=== PATIENT | female | born 2005 | race Caucasian/White ===

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

== ENCOUNTER 2025-04-16 15:54 | Outpatient (AMB) | payer OTHER, SELFPAY ==
--- NOTE | 2025-04-16 15:57 | A.OFFPC_ITS ---
Vital Signs 04/16/25 16:01 Height 5 ft 0.24 in Weight 191 lb 8 oz BMI 37.1 BP 104/74 Blood Pressure Location Rt brachial Position Sitting Respiration 14 Pulse 91 Pulse Source Pulse Oximeter Pulse Oximetry (%) 96 Oxygen Delivery Method Room Air Intake Visit Reasons: cpe Intake Note: Physical Quarry Worker Required: No Allergies amoxicillin Allergy (Intermediate, Verified 04/16/25 15:59) Hives Tobacco use date assessed: 04/16/25 Dental Screening Dental Screen Date: 04/16/25 Did you have a dental visit in the last 12 months?: Yes Did you have a dental problem in the last 6 months where you did not have access to dental care?: No Was dental information given to patient?: Patient has dentist HPI HPI Comments History of Present Illness Details The patient is a 19-year-old female presenting for follow up BH: Stable off wellbutrin. Follows with therapist. The patient describes chronic painful periods, raising her suspicion of endometriosis or PCOS. She experiences pelvic pain particularly around her uterus and ovaries. In addition to pain, she is concerned about potential endometriosis, given the persistence and severity of dysmenorrhea. A family history of insulin resistance has been noted. She was referred to audio visual design engineer but says she did not hear about scheduling an appt Patient frustrated by inability to lose weight. Eats low calorie diet, has been exercising. ROS see HPI PHYSICAL EXAM: GENERAL: Alert and oriented x 3. NAD EYES: EOMI. Anicteric. HENT: Moist mucous membranes. No scleral icterus. No cervical lymphadenopathy. LUNGS: Clear to auscultation bilaterally. CARDIOVASCULAR: Regular rate and rhythm. No murmur. No JVD. ABDOMEN: Soft, non-tender +bs EXTREMITIES: No edema. Non-tender. SKIN: No rashes or lesions. Warm. NEUROLOGIC: No focal neurological deficits. CN II-XII grossly intact PSYCHIATRIC: Cooperative. 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 1. Little interest or pleasure in doing things: several days 2. Feeling down, depressed, or hopeless: several days 3. Trouble falling or staying asleep, or sleeping too much: nearly every day 4. Feeling tired or having little energy: several days 5. Poor appetite or overeating: nearly every day 6. Feeling bad about yourself - or that you are a failure or have let yourself or your family down: more than half the days 7. Trouble concentrating on things, such as reading the newspaper or watching television: nearly every day 8. Moving or speaking so slowly that other people could have noticed. Or the opposite - being so fidgety or restless that you have been moving around a lot more than usual: more than half the days 9. Thoughts that you would be better off or of hurting yourself in some way: several days Total score: 17 Depression Screening Interpretation: Positive Depression Screening Follow-up: Existing condition and Community Mental Health Worker F/U Depression Screening Done: Yes 46165 - PHQ-9 Billing: Yes Source: Developed by Drs. Jossue Parikh, Connie Weller, Ammon Hernández and colleagues, with an educational george from [employer]. Thrive Questionnaire Date Thrive assessed: 04/09/25 I am a: Patient What is your living situation today?: I have a steady place to live Within the past 12 months, did the food you bought not last and you didn't have the money to get more?: Never true Within the past 12 months, did you worry whether your food would run out before you got money to buy more?: Never true Do you have trouble paying for medicines?: No Do you have trouble getting transportation to medical appointments?: No Do you have trouble paying your heating and electricity bill?: No Do you have trouble taking care of your child, family member or friend?: No Do you have trouble with day-to-day activities such as bathing, preparing meals, shopping, managing finances, etc.?: No Are you currently unemployed and looking for a job?: No Are you interested in more education?: No Please select the resources that you would like help with: None Currently or been in a relationship where the following occur: No concerns reported THRIVE Score: 0 AUDIT C Alcohol Use Questionnaire (AUDIT-C) 1. How often do you have a drink containing alcohol?: Never 3. How often do you have six or more drinks on one occasion?: Never Total Score: 0 JOANNA-7 AMB Questionnaire JOANNA-7 Date JOANNA - 7 assessed: 04/16/25 Feeling nervous, anxious, or on edge: 1 = Several days Not being able to stop or control worryin = Several days Worrying too much about different things: 1 = Several days Being so restless that it is hard to sit still: 1 = Several days Becoming easily annoyed or irritable: 3 = Nearly every day Feeling afraid as if something awful might happen: 2 = More than half the days Source: Developed by Drs. Jossue Parikh, Connie Weller, Ammon Hernández and colleagues, with an educational george from [employer]. JOANNA-7 Assessment Billing JOANNA-7 Assessment Tool: JOANNA-7 Assessment 25256 Physical exam (Primary Care) Vital Signs: Last Vital Signs Pulse 91 04/16/25 16:01 Resp 14 04/16/25 16:01 BP 104/74 04/16/25 16:01 Pulse Ox 96 04/16/25 16:01 Oxygen Delivery Method Room Air 04/16/25 16:01 BMI result Body Mass Index 37.1 Tobacco/Smoking Status: Tobacco use Status Tobacco use date assessed 04/16/25 04/16/25 16:10 Patient Tobacco Use Status Never used Tobacco 04/16/25 16:10 e-Cigarette/Vaping Use Never Used 04/16/25 16:10 PHQ-9: PHQ-9 Score PHQ-9: Total score 17 04/16/25 16:10 Depression Screening Interpretation: Positive Depression Screening Follow-up: Existing condition and Community Mental Health Worker F/U Thrive Assessment: Date of Thrive Assessment Date Thrive assessed 04/09/25 04/16/25 15:58 Currently or been in a relationship where the following occur: No concerns reported Coding Level of Care Code Est Pt Prev Care 18-39y(58998) Diagnoses Physical exam Z00.00 Recurrent major depressive disorder, in partial remission F33.41 Major depression recurrence: recurrent Obesity (BMI 30-39.9) E66.9 Additional Codes JOANNA-7 Assessment Billing - JOANNA-7 Assessment Tool: JOANNA-7 Assessment 75179 ([id number]) PHQ-9 - 91759 - PHQ-9 Billing: Yes ([id number]) Assessment & Plan Assessment & Plan (1) Physical exam: Code(s): Z00.00 - Encounter for general adult medical examination without abnormal findings (2) Major depression in partial remission: Code(s): F32.4 - Major depressive disorder, single episode, in partial remission Category: Medical Qualifiers: Major depression recurrence: recurrent Qualified Code(s): F33.41 - Major depressive disorder, recurrent, in partial remission (3) Obesity (BMI 30-39.9): Code(s): E66.9 - Obesity, unspecified Category: Medical Plan Physical exam Interval history reviewed Obesity-GLP ordered. Referral placed to professor of astronomy Orders: Referrals RESEARCH TECHNICIAN Referral N92.6 - Irregular menstruation, unspecified, N94.6 - Dysmenorrhea, unspecified Medications: New Zepbound (tirzepatide (weight loss)) for 4 weeks 2.5 mg (0.5 mL) subcut QWEEK 2 mL 1RF NS E66.9 - Obesity, unspecified, O16.1 - Unspecified maternal hypertension, first trimester ondansetron HCl 4 mg PO Q8H PRN 30 tabs 0RF nausea and vomiting
[2025-04-16 16:01] VITALS: BP 104/74; PULSE 91; RESP 14; O2SAT 96; BMI 37.1
--- OUTSIDE RECORDS SUMMARY | 2025-04-16 16:09 | XMS_ITS | Clinical Summary ---
Author Organization [facility] Address [address] [place] [address] Care Team Providers Care Powderer Name Role Phone Unavailable Primary Care Provider Unavailabl e Allergies No known active allergies Medications No known medications Active Problems No known active problems Social History Tobacco Use Types Packs/Day Years Used Date Smoking Tobacco: Never Assessed Comments Unknown Sex and Gender Information Value Date Recorded Sex Assigned at Not on file Legal Sex Female 1:59 AM EDT Gender Identity Not on file Sexual Orientation Not on file Last Filed Vital Signs Vital Sign Reading Time Taken Comments Blood Pressure - - Pulse - - Temperature 36.7 C (98 F) 10/03/2012 9:40 AM EST Respiratory Rate - - Oxygen Saturation - - Inhaled Oxygen Concentration - - Weight 25.4 kg (56 lb) 10/03/2012 9:40 AM EST Height - - Body Mass Index - - Plan of Treatment Health Maintenance Due Date Last Done Comments Hepatitis C Screening 2005 MMR (1 of 1 - Standard series) 2006 Varicella (1 of 2 - 13+ 2-do se series) 2018 HPV Vaccine (1 - 3-dose series) 2020 Chlamydia 2021 DTaP/Tdap/Td (1 - Tdap) 2023 COVID-19 Vaccine ( - 2023-2 5 season) 2024 Hep B (1 of 3 - 19+ 3-dose series) 2024 Influenza (#1) 2025 Zoster (Shingrix) (1 of 2) 2055 Hep A Aged Out No longer eligi ble based on patient's age to complete this topic Hib Aged Out No longer eligi ble based on patient's age to complete this topic Meningococcal ACWY Aged Out No longer eligible based on patient's age to complete this topic Pneumococcal Aged Out No longer eligi ble based on patient's age to complete this topic Polio (IPV/OPV) Aged Out No longer el igible based on patient's age to complete this topic
--- OUTSIDE RECORDS SUMMARY | 2025-04-16 16:09 | XMS_ITS ---
Author Name [facility] Organization Unknown Care Team Organization Name Specialty Phone Email Start Date End Da [facility] WENDY CARRILLO Primary Care 07/20/2022 04/30/2024
== END 2025-04-16 16:22 | disposition home or self-care (01) ==
LOC: HO.HMCFM 15:55
PROVIDERS: PCP Internal Medicine; Visit Provider Internal Medicine
DX: Z00.00 Encounter for general adult medical examination without abnormal findings (principal); F33.41 Major depressive disorder, recurrent, in partial remission; E66.9 Obesity, unspecified; Z68.54 Body mass index [BMI] pediatric, 95th percentile for age to less than 120% of the 95th percentile for age

== ENCOUNTER → 2025-04-16 15:54 | Outpatient (BNVA) | payer OTHER, SELFPAY | PROVIDERS: PCP Internal Medicine; Visit Provider Internal Medicine | DX: Z00.00 Encounter for general adult medical examination without abnormal findings (principal); F33.41 Major depressive disorder, recurrent, in partial remission; E66.9 Obesity, unspecified; Z71.3 Dietary counseling and surveillance | CPT/HCPCS: 96127 ==